=== PATIENT | female | born 1990 | race Caucasian/White ===

== ENCOUNTER → 2017-02-17 | Outpatient (CLI) | payer BC ==
[~2017-02-17] MED LIST: GADOBUTROL 7.5 MMOL/7.5 ML PFS ONE
== END | disposition home or self-care (01) ==
LOC: RAD 08:54
PROVIDERS: ATTEND Registered Nurse
DX: M40.40 Postural lordosis, site unspecified (principal)
CPT/HCPCS: 72156; A9585